=== PATIENT | male | born 1980 | race Caucasian/White ===

== ENCOUNTER → 2020-05-03 | Outpatient (CLI) | payer OTHER ==
[2020-05-04 12:14] LABS: CREATININE, URINE 248.6 mg/dL (Not Estab.)
== END ==
LOC: LAB 07:42
PROVIDERS: Internal Medicine Nephrology
DX: N18.9 Chronic kidney disease, unspecified (principal)
CPT/HCPCS: 36415; 80053; 81001; 82043; 82570; 84156